=== PATIENT | female | born 1950 | race Caucasian/White ===

== ENCOUNTER 2018-07-04 21:38 | Emergency (ER) | payer OTHER ==
[~2018-07-04] VITALS: Ht 160 cm; Wt 101.6 kg
[~2018-07-04 21:38] MED LIST: AMLO5TAB1 PO; ARTOP OP; CLON0.1T79 PO; GEMF600T6 PO; LISI40TA4 PO; LOVAZA PO; MECL-272 PO; MIRABULK PO; ROSU10TA PO; SERT25TA PO; TYL3 PO; [UNRECOGNIZED DRUG - CODE] OP; [UNRECOGNIZED DRUG - CODE] SC
[2018-07-04 21:42] VITALS: BP 115/59
--- NOTE | 2018-07-04 21:45 | NUR ---
ASSUMED CARE OF PT AT THIS TIME. C/O RIGHT ANKLE PAIN/SWELLING S/P MECHANICAL TRIP/FALL X 1 HOUR. AAOX4 WITH EVEN AND STEADY GAIT; PATIENT STATES PAIN OF 5/10 AT THIS TIME; VSS; PATIENT POSITIONED FOR COMFORT; HOB ELEVATED; BEDRAILS UP X2; BED DOWN. ER MD MADE AWARE OF PT STATUS. WILL CONTINUE TO MONITOR.
--- NOTE | 2018-07-04 21:45 | NUR ---
PT [facility]. TAKEN TO BED 6
--- NOTE | 2018-07-04 22:02 | NUR ---
X-Ray at bedside.
--- NOTE | 2018-07-04 22:11 | NUR ---
Dr. Caraballo evaluating patient at bedside.
[2018-07-04] MEDS ORDERED: KETOROLAC 30 MG/ML VIAL IVP ONE (22:20)
[2018-07-04] MEDS ORDERED: fentaNYL 0.05 MG/ML VIAL IVP ONE (22:50)
--- NOTE | 2018-07-04 23:03 | NUR ---
X-Ray at bedside.
--- NOTE | 2018-07-05 00:11 | NUR ---
CALLED [facility]. JUDY STATES THAT THEY DO NOT PROVIDE TRANSPORTATION FOR PATIENTS BACK TO [facility]
--- NOTE | 2018-07-05 00:25 | NUR ---
CALLED [facility] TO SET UP TRANSFER, [facility] ETA 2 HOURS
--- NOTE | 2018-07-05 00:30 | NUR ---
PT RESTING COMFORTABLY. PT AWAITS TRANSPORT FOR RETURN TO [facility]. NAD. VSS. WILL CONTINUE TO MONITOR.
[2018-07-05] MEDS ORDERED: traMADol 50 MG TAB PO ONE (02:45)
[2018-07-05 03:00] VITALS: BP 118/61
--- NOTE | 2018-07-05 03:00 | NUR ---
Patient discharged with v/s stable. Written and verbal after care instructions given and explained. Patient alert, oriented and verbalized understanding of instructions. Ambulance Transport to snf. All questions addressed prior to discharge. ID band removed. Patient advised to follow up with PMD/ORTHO. Rx of TRAMADOL given. Patient educated on indication of medication including possible reaction and side effects. Opportunity to ask questions provided and answered.
--- NOTE | 2018-07-05 03:05 | NUR ---
PT TAKEN BY [facility] BACK [facility]
== END 2018-07-05 03:00 | disposition home or self-care (01) ==
LOC: MED 21:38
DX: S82.441A Displaced spiral fracture of shaft of right fibula, initial encounter for closed fracture (principal); S82.241A Displaced spiral fracture of shaft of right tibia, initial encounter for closed fracture; E11.9 Type 2 diabetes mellitus without complications; I10 Essential (primary) hypertension; I63.9 Cerebral infarction, unspecified; Z88.0 Allergy status to penicillin; Z79.899 Other long term (current) drug therapy; W18.30XA Fall on same level, unspecified, initial encounter; Y93.89 Activity, other specified; Y92.89 Other specified places as the place of occurrence of the external cause; Y99.8 Other external cause status
CPT/HCPCS: 29515; 73562; 73610; 96374; 96375; 99284; J1885; J3010; Q0092